=== PATIENT | female | born 1955 | race Caucasian/White ===

== ENCOUNTER → 2017-03-06 | Outpatient (CLI) | payer BC ==
[2016-06-20 17:00] VITALS: BP 119/52
[~2017-03-06] MED LIST: CHOL500016 PO; ESTR1TAB15 PO; Equate PO; GLIP5TAB10 PO; MEDR2.5T28 PO; METF500T4 PO; PIOG45TA40 PO; RANI150T6 PO; SERT100T PO; SIMV20TA3 PO
--- NOTE | 2017-03-07 10:07 | RAD ---
DATE: 03/06/2017 EXAM: MAMMO SARBJIT SCREENING BILATERAL Bilateral digital screening mammography to include digital breast tomosynthesis (3D mammography) HISTORY: Screening study. COMPARISON: 11/10/2009 This study was interpreted with the benefit of Computerized Aided Detection (CAD). The breast parenchyma shows scattered fibroglandular densities. Breast parenchyma level B. FINDINGS: Digital MLO and CC mammograms of both breasts were obtained. Additionally digital breast tomosynthesis (3D mammography) images of both breasts in the MLO and CC projections were performed. Comparison study is dated 11/10/2009. The breast parenchyma is composed of scattered fibroglandular densities which can obscure a lesion on mammography (breast density code B). No spiculated mass is seen. No malignant appearing calcification or area of architectural distortion is noted. Benign-appearing calcifications are seen within both breasts. Digital breast tomosynthesis images demonstrate no spiculated mass or malignant appearing calcification. Since the previous examination there has been no significant interval change. IMPRESSION: BI-RADS Category 1, negative. There is no mammographic evidence of malignancy. Routine yearly screening mammography is recommended for follow-up. BI-RADS CATEGORY: 1 NEGATIVE RECOMMENDED FOLLOW-UP: 12M 12 MONTH FOLLOW-UP PQRS compliance statement: Patient information was entered into a reminder system with a target due date 03/06/2018 for the next mammogram. Mammography is a sensitive method for finding small breast cancers, but it does not detect them all and is not a substitute for careful clinical examination. A negative mammogram does not negate a clinically suspicious finding and should not result in delay in biopsying a clinically suspicious abnormality. "Our facility is accredited by the [employer] Mammography Program."
== END | disposition home or self-care (01) ==
LOC: MAMMO 12:49
PROVIDERS: ATTEND Physician Assistant
DX: Z12.31 Encounter for screening mammogram for malignant neoplasm of breast (principal)
CPT/HCPCS: 77063; G0202; 77067

== ENCOUNTER 2017-10-31 13:53 | Emergency (ER) | payer BC ==
[~2017-10-31] VITALS: Ht 149.9 cm; Wt 77.3 kg
[~2017-10-31 13:53] MED LIST changes: -POTA20TA82 PO; -SINCALIDE 1.53 MCG in IV NORMAL SALINE 50ML 30 ML IV ONE
[2017-10-31] MEDS ORDERED: IV NORMAL SALINE 1,000ML 1,000 ML IV ONE (14:45)
[2017-10-31 14:48] LABS: BASO # 0.1 x10^3/uL (0.0-0.2); BASO % 1 % (0-3); EOS % 1 % (0-3); HEMATOCRIT 34.6 % (36.0-47.0); HEMOGLOBIN 11.5 g/dL (12.0-15.5); LYMPH # 1.9 x10^3/uL (1.0-4.8); LYMPH % 19 % (24-48); MEAN CORPUSCULAR HEMOGLOBIN 29 pg (25-35); MEAN CORPUSCULAR HGB CONC 33 g/dL (31-37); MEAN CORPUSCULAR VOLUME 86 fL (79-100); MONO # 0.6 x10^3/uL (0.0-1.1); MONO % 6 % (0-9); NEUT # 7.3 x10^3uL (1.8-7.7); NEUT % 73 % (31-73); PLATELET COUNT 463 x10^3/uL (140-400); RED BLOOD COUNT 4.02 x10^6/uL (3.50-5.40)
[2017-10-31 14:57] LABS: ALBUMIN 2.7 g/dL (3.4-5.0); ALBUMIN/GLOBULIN RATIO 0.7 (1.0-1.7); CALCIUM 8.4 mg/dL (8.5-10.1); CREATININE 0.6 mg/dL (0.6-1.0); TOTAL PROTEIN 6.8 g/dL (6.4-8.2)
[2017-10-31 14:59] LABS: POTASSIUM 2.9 mmol/L (3.5-5.1)
[2017-10-31 15:44] VITALS: BP 117/51
[2017-10-31] MEDS ORDERED: POTA20TA82 PO (15:54)
--- NOTE | 2017-10-31 15:55 | PHYS DOC ---
Past History Past Medical History: Diabetes, Hypertension, Other Past Surgical History: Appendectomy, , Hysterectomy, Tonsillectomy, Other Alcohol Use: Rarely Drug Use: None Adult General Chief Complaint Chief Complaint: ABDOMINAL PAIN HPI HPI Patient is a 62 year old F who presents with abdominal pain and abnormal outside labs. For chronic was having a test done today on her gallbladder when she developed dull cramping lower abdominal pain. She was also found to have a potassium of 2.0 outside labs. She recently had a gastric bypass which was complicated by postop bowel necrosis and is status post hemicolectomy. She does continue to have loose stools however she is not having frequent loose stools. She denies nausea or vomiting. Currently she denies any abnormal symptoms. Review of Systems Review of Systems Constitutional: Denies fever or chills [] Eyes: Denies change in visual acuity, redness, or eye pain [] HENT: Denies nasal congestion or sore throat [] Respiratory: Denies cough or shortness of breath [] Cardiovascular: No additional information not addressed in HPI [] GI: Denies abdominal pain, nausea, vomiting, bloody stools or diarrhea [] : Denies dysuria or hematuria [] Musculoskeletal: Denies back pain or joint pain [] Integument: Denies rash or skin lesions [] Neurologic: Denies headache, focal weakness or sensory changes [] Endocrine: Denies polyuria or polydipsia [] All other systems were reviewed and found to be within normal limits, except as documented in this note. Family History Family History No pertinent medical family history was reported Current Medications Current Medications Current Medications Medications (Trade) Dose Ordered Sig/Cathi Start Time Stop Time Status Last Admin Dose Admin Sodium Chloride 1,000 ml @ 1,000 mls/hr 1X ONCE 10/31/17 14:45 10/31/17 15:44 10/31/17 14:50 1,000 MLS/HR Allergies Allergies Allergies Coded Allergies Type Severity Reaction Last Updated Verified Sulfa (Sulfonamide Antibiotics) Allergy Intermediate 06/20/16 No Physical Exam Physical Exam Constitutional: Well developed, well nourished, no acute distress, non-toxic appearance. [] HENT: Normocephalic, atraumatic, Eyes: EOMI, conjunctiva normal, no discharge. [] Neck: Normal range of motion, no tenderness, supple, no stridor. [] Cardiovascular:Heart rate regular rhythm, no murmur [] Lungs & Thorax: Bilateral breath sounds clear to auscultation [] Abdomen: Bowel sounds normal, soft, no tenderness, no masses, no pulsatile masses. [] Skin: Warm, dry, no erythema, no rash. [] Back: No tenderness, no CVA tenderness. [] Extremities: No tenderness, no cyanosis, no clubbing, ROM intact, no edema. [] Neurologic: Alert and oriented X 3, normal motor function, normal sensory function, no focal deficits noted. [] Psychologic: Affect normal, judgement normal, mood normal. [] Current Patient Data Vital Signs Vital Signs Date Time Temp Pulse Resp B/P (MAP) Pulse Ox O2 Delivery O2 Flow Rate FiO2 10/31/17 14:32 98.7 79 18 94 Room Air Lab Results Laboratory Tests Test 10/31/17 14:25 10/31/17 14:42 White Blood Count 10.0 x10^3/uL (4.0-11.0) Red Blood Count 4.02 x10^6/uL (3.50-5.40) Hemoglobin 11.5 g/dL (12.0-15.5) L Hematocrit 34.6 % (36.0-47.0) L Mean Corpuscular Volume 86 fL (79-100) Mean Corpuscular Hemoglobin 29 pg (25-35) Mean Corpuscular Hemoglobin Concent 33 g/dL (31-37) Red Cell Distribution Width 17.0 % (11.5-14.5) H Platelet Count 463 x10^3/uL (140-400) H Neutrophils (%) (Auto) 73 % (31-73) Lymphocytes (%) (Auto) 19 % (24-48) L Monocytes (%) (Auto) 6 % (0-9) Eosinophils (%) (Auto) 1 % (0-3) Basophils (%) (Auto) 1 % (0-3) Neutrophils # (Auto) 7.3 x10^3uL (1.8-7.7) Lymphocytes # (Auto) 1.9 x10^3/uL (1.0-4.8) Monocytes # (Auto) 0.6 x10^3/uL (0.0-1.1) Eosinophils # (Auto) 0.0 x10^3/uL (0.0-0.7) Basophils # (Auto) 0.1 x10^3/uL (0.0-0.2) Sodium Level 142 mmol/L (136-145) Potassium Level 2.9 mmol/L (3.5-5.1) #*L Chloride Level 99 mmol/L (98-107) Carbon Dioxide Level 32 mmol/L (21-32) Anion Gap 11 (6-14) Blood Urea Nitrogen 8 mg/dL (7-20) Creatinine 0.6 mg/dL (0.6-1.0) Estimated GFR (Cockcroft-Gault) 101.0 BUN/Creatinine Ratio 13 (6-20) Glucose Level 303 mg/dL (70-99) H Calcium Level 8.4 mg/dL (8.5-10.1) L Total Bilirubin 1.0 mg/dL (0.2-1.0) Aspartate Amino Transferase (AST) 39 U/L (15-37) H Alanine Aminotransferase (ALT) 24 U/L (14-59) Alkaline Phosphatase 59 U/L (46-116) Total Protein 6.8 g/dL (6.4-8.2) Albumin 2.7 g/dL (3.4-5.0) L Albumin/Globulin Ratio 0.7 (1.0-1.7) L Lipase 158 U/L (73-393) Lactic Acid Level 1.0 mmol/L (0.4-2.0) EKG EKG [] Radiology/Procedures Radiology/Procedures [] Course & Med Decision Making Course & Med Decision Making Pertinent Labs and Imaging studies reviewed. (See chart for details) Dr. Richie contreras, the surgeon who performed her bypass and bowel resection, was contacted by phone. Outpatient potassium supplementation was recommended as well as follow-up with her primary care doctor for further management. Dragon Disclaimer Dragon Disclaimer This electronic medical record was generated, in whole or in part, using a voice recognition dictation system. Departure Departure: Impression: Primary Impression: Hypokalemia Disposition: 01 HOME, SELF-CARE Condition: STABLE Referrals: JAUN WOODARD (PCP) Patient Instructions: Hypokalemia Additional Instructions: Melissa was seen in the emergency department for abdominal pain and abnormal labs. No emergency medical condition was found on history or physical exam. She was found to have low potassium which was supplemented in the emergency room. She was also given a prescription for supplemental potassium to be taken daily. She is advised follow-up with her primary care doctor in the next 3-5 days for repeat labs and further management. She was encouraged to return to the emergency room if she develops new or worsening symptoms. Scripts Potassium Chloride (POTASSIUM CHLORIDE) 20 Meq Tablet.er 20 MEQ PO DAILY for 7 Days, #7 TAB Prov: THELMA WEST MD 10/31/17 THELMA WEST MD Oct 31, 2017 15:55
[2017-10-31] MEDS ORDERED: POTASSIUM CHLORIDE 20 MEQ TABLET.ER. PO ONE (16:15)
== END 2017-10-31 16:21 | disposition home or self-care (01) ==
LOC: ER 13:53
DX: E87.6 Hypokalemia (principal); R10.30 Lower abdominal pain, unspecified; E11.9 Type 2 diabetes mellitus without complications; I10 Essential (primary) hypertension; Z90.49 Acquired absence of other specified parts of digestive tract; Z90.710 Acquired absence of both cervix and uterus; Z98.890 Other specified postprocedural states; Z98.84 Bariatric surgery status; Z88.2 Allergy status to sulfonamides
CPT/HCPCS: 36415; 80053; 83605; 83690; 85025; 87040; 96360; 99284-25; J7030

== ENCOUNTER → 2017-10-31 | Outpatient (CLI) | payer BC ==
[2016-06-20 17:00] VITALS: BP 119/52
[~2017-10-31] MED LIST changes: +POTA20TA82 PO
[2017-10-31 12:53] LABS: BILIRUBIN,URINE SMALL (NEG); CLARITY,URINE HAZY; COLOR,URINE YELLOW; GLUCOSE,URINE NEG (NEG)
[2017-10-31 12:54] LABS: BACTERIA,URINE FEW /HPF (0-FEW); HYALINE CASTS, URINE MOD /HPF; NITRITE,URINE NEG (NEG); RBC,URINE 0 /HPF (0-2); SQUAMOUS EPITHELIAL CELL,UR MOD /LPF; UROBILINOGEN,URINE 0.2 mg/dL (0.2 mg/dL)
[2017-10-31 13:01] LABS: BASO # 0.1 x10^3/uL (0.0-0.2); BASO % 1 % (0-3); EOS # 0.1 x10^3/uL (0.0-0.7); EOS % 1 % (0-3); HEMATOCRIT 37.8 % (36.0-47.0); HEMOGLOBIN 12.3 g/dL (12.0-15.5); LYMPH % 19 % (24-48); MEAN CORPUSCULAR HEMOGLOBIN 28 pg (25-35); MEAN CORPUSCULAR HGB CONC 33 g/dL (31-37); MEAN CORPUSCULAR VOLUME 86 fL (79-100); MONO # 0.6 x10^3/uL (0.0-1.1); MONO % 6 % (0-9); NEUT # 7.7 x10^3uL (1.8-7.7); NEUT % 74 % (31-73); PLATELET COUNT 527 x10^3/uL (140-400); RED BLOOD COUNT 4.38 x10^6/uL (3.50-5.40); WHITE BLOOD COUNT 10.5 x10^3/uL (4.0-11.0)
[2017-10-31 13:07] LABS: ALBUMIN 2.9 g/dL (3.4-5.0); CALCIUM 8.8 mg/dL (8.5-10.1); CREATININE 0.6 mg/dL (0.6-1.0); DIRECT BILIRUBIN 0.8 mg/dL (0.0-0.2); TOTAL BILIRUBIN 1.2 mg/dL (0.2-1.0); TOTAL PROTEIN 7.7 g/dL (6.4-8.2)
[2017-10-31 13:13] LABS: POTASSIUM 2.5 mmol/L (3.5-5.1)
== END | disposition home or self-care (01) ==
LOC: LAB 10:01
PROVIDERS: ATTEND Physician Assistant Medical
DX: Z98.84 Bariatric surgery status (principal)
CPT/HCPCS: 36415; 80048; 80076; 81001; 85025

== ENCOUNTER → 2017-10-31 | Outpatient (CLI) | payer BC ==
[2016-06-20 17:00] VITALS: BP 119/52
[~2017-10-31] VITALS: Ht 149.9 cm; Wt 76.7 kg
[~2017-10-31] MED LIST changes: +SINCALIDE 1.53 MCG in IV NORMAL SALINE 50ML 30 ML IV ONE
--- NOTE | 2017-10-31 10:40 | RAD ---
Right upper quadrant abdominal ultrasound, 10/31/2017: History: Epigastric pain The gallbladder is within normal limits in size. It contains echogenic material without posterior acoustic shadowing. The appearance that of biliary sludge. No definite calculi are seen. The gallbladder alanis are not thickened. The common hepatic duct is of normal caliber. No hepatic abnormality is seen. The visualized portions of the pancreatic body are unremarkable. Other portions of the pancreas were obscured by overlying bowel. The right kidney is unremarkable. IMPRESSION: Sludge in the gallbladder without evidence of cholelithiasis.
[2017-10-31 13:17] LABS: ALBUMIN 2.9 g/dL (3.4-5.0); ALBUMIN/GLOBULIN RATIO 0.6 (1.0-1.7); CALCIUM 8.8 mg/dL (8.5-10.1); CREATININE 0.6 mg/dL (0.6-1.0); TOTAL BILIRUBIN 1.2 mg/dL (0.2-1.0); TOTAL PROTEIN 7.7 g/dL (6.4-8.2)
[2017-10-31 13:19] LABS: POTASSIUM 2.5 mmol/L (3.5-5.1)
--- NOTE | 2017-10-31 13:36 | RAD ---
Hepatobiliary imaging 10/31/2017 Indication: Abdominal pain. Symptoms x1 month. Comparison study: Right upper quadrant ultrasound, earlier today Discussion: Imaging over the abdomen was performed following the intravenous administration of 5.5 mCi of technetium 99m labeled Choletec. Following visualization of the gallbladder 1.5 mcg of sincalide was administered intravenously and imaging over the abdomen was continued. Expected uptake and excretion of radiotracer by the liver into the gallbladder and biliary tree is seen. Some free pertechnetate noted in the bladder. The gallbladder is initially visualized at approximately 30 minutes. Following filling of the gallbladder administration of CCK gallbladder ejection fraction measures 22% (normal measurements are 35% or greater). Impression: 1. Patent cystic duct. No scintigraphic evidence of acute cholecystitis. 2. Low gallbladder ejection fraction. Findings can relate to chronic cholecystitis or biliary dyskinesia.
== END | disposition home or self-care (01) ==
LOC: NM 09:52
PROVIDERS: ATTEND Physician Assistant Medical
DX: K83.1 Obstruction of bile duct (principal); I10 Essential (primary) hypertension; E11.9 Type 2 diabetes mellitus without complications; R10.84 Generalized abdominal pain; Z98.890 Other specified postprocedural states
CPT/HCPCS: 36415; 76705; 78226; 80053; 96374; 96375; A9537; J2805

== ENCOUNTER → 2018-04-10 | Outpatient (CLI) | payer BC ==
[~2018-04-10] VITALS: Ht 149.9 cm; Wt 63.5 kg
[~2018-04-10] MED LIST changes: +METF500T16 PO; -METF500T4 PO; +POTA20TA82 PO; +RANI150T21 PO; -RANI150T6 PO; +SINCALIDE 1.27 MCG in IV NORMAL SALINE 50ML 30 ML IV ONE
--- NOTE | 2018-04-10 10:03 | RAD ---
Complete abdominal ultrasound History: pt had a RNY gastric by-pass Sep 2017 pt gets severe pain just after eating pt had some fluid at 8 PM last night and there is still a lot of fluid in her stomach prior sono and Nuc Med exams done in October 2017 . Findings: Aorta: No evidence of aneurysm. Inferior vena cava: Patent Pancreas: Unremarkable Liver: Unremarkable and not enlarged Gallbladder: Echogenicity within the gallbladder compatible with sludge. There are some focal echogenic structures within the gallbladder, suspicious for gallstones. The images from the prior study of October 31 are not available, but no gallstones were reported at that time. Bile ducts: No evidence of dilatation Right kidney: 10.6 cm length. No evidence of hydronephrosis. Left kidney: 9.9 cm length. No evidence of hydronephrosis. Spleen: Not enlarged There is mild fluid within the stomach. Impression: Gallbladder sludge. There now appear to be gallstones. Images from previous exam are not currently available but gallstones were not reported at that time. Electronically signed by: Mehul Vega MD (04/10/2018 9:59 AM) [id number]
--- NOTE | 2018-04-10 11:56 | RAD ---
EXAM: Nuclear hepatobiliary scan. HISTORY: Pain and nausea. TECHNIQUE: Following intravenous administration of 5.0 mCi Tc 99m Choletec, anterior images of the abdomen were obtained at five minute intervals through one hour. Subsequently, 1.3 mcg CCK was administered and additional images to assess gallbladder ejection fraction were obtained. FINDINGS: There is prompt radiotracer uptake by the liver. No focal defect is seen. There is normal excretion into the biliary tree. The gallbladder is visualized within 10 minutes and there is free flow into the duodenum. The gallbladder ejection fraction is 36.3%. IMPRESSION: Low limits of normal gallbladder ejection fraction of 36.3%. Electronically signed by: Fernanda Galvez MD (04/10/2018 11:52 AM) [id number]
== END | disposition home or self-care (01) ==
LOC: US 07:31
PROVIDERS: ATTEND Physician Assistant Medical
DX: R10.84 Generalized abdominal pain (principal); E11.9 Type 2 diabetes mellitus without complications
CPT/HCPCS: 76700; 78226; 96374; 96375; A9537; J2805